=== PATIENT | female | born 1945 | race Caucasian/White ===

== ENCOUNTER → 2020-02-05 13:59 | Outpatient (BNVA) | payer MEDICARE, OTHER, SELFPAY | PROVIDERS: Family Provider Family Medicine; PCP Family Medicine; Visit Provider Nurse Practitioner | DX: Z20.828 Contact with and (suspected) exposure to other viral communicable diseases (principal) | CPT/HCPCS: 87635 ==

== ENCOUNTER → 2020-02-12 10:54 | Outpatient (BNVA) | payer MEDICARE, OTHER, SELFPAY | PROVIDERS: Family Provider Family Medicine; PCP Family Medicine; Visit Provider Nurse Practitioner Family | DX: Z20.828 Contact with and (suspected) exposure to other viral communicable diseases (principal); J06.9 Acute upper respiratory infection, unspecified | CPT/HCPCS: 87635 ==

== ENCOUNTER → 2020-12-31 08:43 | Outpatient (BNVA) | payer MEDICARE, OTHER, SELFPAY | PROVIDERS: Family Provider Family Medicine; PCP Family Medicine; Visit Provider Internal Medicine | DX: R76.8 Other specified abnormal immunological findings in serum (principal); R79.82 Elevated C-reactive protein (CRP); R53.1 Weakness; M79.10 Myalgia, unspecified site; Z11.59 Encounter for screening for other viral diseases; Z79.899 Other long term (current) drug therapy; M70.60 Trochanteric bursitis, unspecified hip; Y93.9 Activity, unspecified | CPT/HCPCS: 36415; 72100; 73120; 80053; 81003; 82550; 83516; 83735; 84100; 84155; 84165; 84443; 85025; 85651; 86140; 86160; 86162; 86235; 86255; 86376; 86704; 86803; 87340; 99204; 99214 ==

== ENCOUNTER 2020-12-31 10:36 | Outpatient (CLI) | payer MEDICARE, OTHER, SELFPAY ==
--- NOTE | 2020-12-31 10:46 | XR_ITS ---
WS: [id number] Exam: XR lumbar spine 2-3V* [id number] Date/Time of Exam: 12/31/2020 10:55 AM Reason For Exam: R76.8 - Other specified abnormal immunological findings i... No fracture or dislocation. Disc spaces are preserved. Posterior elements are intact. Osteopenia. XR/XR lumbar spine 2-3V* [id number] IMPRESSION: 1. No fracture or malalignment. 2. Mild spondylosis. Osteopenia.
--- NOTE | 2020-12-31 10:46 | XR_ITS ---
WS: [id number] Exam: XR hand RT 2V [id number] Date/Time of Exam: 12/31/2020 10:55 AM Reason For Exam: M79.10 - Myalgia, unspecified site No fracture or dislocation noted. Degenerative narrowing of the DIP joints. No soft tissue foreign silvina dies are seen. XR/XR hand RT 2V 14227 IMPRESSION: 1. Degenerative narrowing of the DIP joints. 2. No fracture or other significant finding.
[2020-12-31 11:32] LABS: Add Urine Microscopic? NO; Charge for UA Resulting for Rev
[2020-12-31 11:38] LABS: Basophils # 0.1 10^3/uL (0.0-0.1); Basophils % 0.7 %; Eosinophils % 0.2 %; Hematocrit 36.5 % (37.0-47.0); Hemoglobin 11.9 g/dL (11.5-15.3); Lymphocytes # 1.1 10^3/uL (0.8-4.8); Lymphocytes % 11.4 %; Mean Corpuscular HGB Conc 32.6 g/dL (30.0-36.0); Mean Corpuscular Hemoglobin 31.5 pg (28.0-34.0); Mean Corpuscular Volume 96.6 fl (81-99); Monocytes # 0.6 10^3/uL (0.2-0.9); Neutrophils # 7.95 10^3/uL (1.8-7.7); Neutrophils % 81.2 %; Nucleated Red Blood Cells % 0 %; Platelet Count 579 10^3/cmm (130-400); Red Blood Count 3.78 10^6/uL (4.1-5.3); Red Cell Distribution Width 12.8 % (12.1-15.1); White Blood Count 9.8 10^3/uL (4.0-10.0)
[2020-12-31 12:00] LABS: Bilirubin Urine Neg (Negative); Blood Urine Neg (Negative); Glucose Urine UA Norm (Normal); Ketones Urine Negative (Negative); Leukocyte Esterase Urine Negative (Negative); Nitrate Urine Negative (Negative); Protein Urine Neg (Negative); Urine Appearance Clear (CLEAR); Urine Color Straw (Yellow); Urobilinogen Urine Norm (Negative); pH Urine 7 (5-7)
[2020-12-31 12:34] LABS: Alanine Aminotransferase 14 U/L (0-33); Alkaline Phosphatase 69 IU/L (35-105); Anion Gap 20.6 (5-19); Aspartate Amino Transferase 18 U/L (0-32); Blood Urea Nitrogen 7 mg/dL (8-23); C Reactive Protein 37.5 mg/L (0.0-4.9); Carbon Dioxide 21 mmol/L (22-29); Chloride 93 mmol/L (98-107); Complement C3 150 mg/dL (90-180); Creatine Phosphokinase 43 U/L (26-192); Globulin 3.6 g/dL (1.3-4.6); Glucose 105 mg/dL (65-115); Magnesium 1.9 mg/dL (1.7-2.3); Osmolality Calculated 268 mOsm/kg (285-295); Phosphorus 3.2 mg/dL (2.5-4.5); Potassium 4.6 mmol/L (3.5-5.1); Sodium 130 mmol/L (136-145); Thyroid Stimulating Hormone 10.21 uIU/mL (0.27-4.20); Total Bilirubin 0.4 mg/dL (0.15-1.2); Total Protein 7.6 g/dL (6.6-8.7)
[2020-12-31 12:37] LABS: Hepatitis B Core AB, Total Non-Reactive (Nonreactive); Hepatitis B Surface Antigen Non-Reactive (Nonreactive); Hepatitis C Virus Antibody Non-Reactive (Nonreactive)
[2021-01-01 11:03] LABS: PROTEIN, TOTAL 6.8 g/dL (6.1-8.1)
[2021-01-01 12:18] LABS: COMPLEMENT COMPONENT C3C 163 mg/dL (83-193); COMPLEMENT COMPONENT C4C 35 mg/dL (15-57)
[2021-01-01 14:00] LABS: Erythrocyte Sedimentation Rate 36 mm/hr (0-15)
[2021-01-01 15:08] LABS: ALBUMIN 3.5 g/dL (3.8-4.8); ALPHA 1 GLOBULIN 0.4 g/dL (0.2-0.3); ALPHA 2 GLOBULIN 1.1 g/dL (0.5-0.9); BETA 1 GLOBULIN 0.5 g/dL (0.4-0.6); BETA 2 GLOBULIN 0.4 g/dL (0.2-0.5); COMPLEMENT, TOTAL (CH50) >60 U/mL (31-60); GAMMA GLOBULIN 0.9 g/dL (0.8-1.7)
[2021-01-04 12:41] LABS: CENTROMERE B ANTIBODY <1.0 NEG AI (<1.0 NEG); JO-1 ANTIBODY <1.0 NEG AI (<1.0 NEG); RNP ANTIBODY <1.0 NEG AI (<1.0 NEG); SCL-70 ANTIBODY <1.0 NEG AI (<1.0 NEG); SJOGREN'S ANTIBODY (SS-A) <1.0 NEG AI (<1.0 NEG); SM ANTIBODY <1.0 NEG AI (<1.0 NEG); SS-B <1.0 NEG AI (<1.0 NEG)
[2021-01-04 13:52] LABS: THYROID PEROXIDASE ANTIBODIES 307 IU/mL (<9)
[2021-01-04 14:53] LABS: ANA SCREEN, IFA NEGATIVE (NEGATIVE)
[2021-01-06 15:57] LABS: ANCA Screen NEGATIVE (NEGATIVE)
== END 2020-12-31 10:37 | disposition home or self-care (01) ==
PROVIDERS: PCP Family Medicine; Visit Provider Internal Medicine
DX: M79.10 Myalgia, unspecified site (principal); R53.1 Weakness; R76.8 Other specified abnormal immunological findings in serum; R79.82 Elevated C-reactive protein (CRP); Z79.899 Other long term (current) drug therapy; Z11.59 Encounter for screening for other viral diseases
CPT/HCPCS: 36415; 72100; 73120; 80053; 81003; 82550; 83516; 83735; 84100; 84155; 84165; 84443; 85025; 85651; 86140; 86160; 86162; 86235; 86255; 86376; 86704; 86803; 87340

== ENCOUNTER → 2021-01-15 08:10 | Outpatient (BNVA) | payer MEDICARE, OTHER, SELFPAY | PROVIDERS: PCP Family Medicine; Visit Provider Internal Medicine | DX: R76.8 Other specified abnormal immunological findings in serum (principal); R79.82 Elevated C-reactive protein (CRP); R79.89 Other specified abnormal findings of blood chemistry; D75.839 Thrombocytosis, unspecified | CPT/HCPCS: 99214 ==

== ENCOUNTER → 2021-06-17 07:46 | Outpatient (BNVA) | payer MEDICARE, OTHER, SELFPAY | PROVIDERS: PCP Family Medicine; Visit Provider Family Medicine | DX: N19 Unspecified kidney failure (principal); R79.89 Other specified abnormal findings of blood chemistry; R53.1 Weakness; M25.50 Pain in unspecified joint; M79.10 Myalgia, unspecified site | CPT/HCPCS: 80053; 84439; 84443; 84481; 85025; 86140 ==

== ENCOUNTER → 2021-09-14 07:56 | Outpatient (BNVA) | payer MEDICARE, OTHER, SELFPAY | PROVIDERS: PCP Family Medicine; Visit Provider Family Medicine | DX: R53.1 Weakness (principal); R79.89 Other specified abnormal findings of blood chemistry; R79.82 Elevated C-reactive protein (CRP) | CPT/HCPCS: 80053; 84439; 84443; 85025; 86141 ==

== ENCOUNTER → 2021-12-21 08:12 | Outpatient (BNVA) | payer MEDICARE, OTHER, SELFPAY | PROVIDERS: PCP Family Medicine; Visit Provider Family Medicine | DX: Z00.00 Encounter for general adult medical examination without abnormal findings (principal); M79.10 Myalgia, unspecified site; R53.1 Weakness | CPT/HCPCS: 80053; 80061; 85025 ==

== ENCOUNTER → 2022-03-28 08:05 | Outpatient (BNVA) | payer MEDICARE, OTHER, SELFPAY | PROVIDERS: PCP Family Medicine; Visit Provider Family Medicine | DX: R79.89 Other specified abnormal findings of blood chemistry (principal); Z13.9 Encounter for screening, unspecified; R79.82 Elevated C-reactive protein (CRP); R76.8 Other specified abnormal immunological findings in serum | CPT/HCPCS: 80053; 80061; 85025 ==

== ENCOUNTER → 2022-09-27 07:59 | Outpatient (BNVA) | payer MEDICARE, OTHER, SELFPAY | PROVIDERS: PCP Family Medicine; Visit Provider Family Medicine | DX: R79.82 Elevated C-reactive protein (CRP) (principal); R76.8 Other specified abnormal immunological findings in serum; R79.89 Other specified abnormal findings of blood chemistry; D75.839 Thrombocytosis, unspecified; R53.1 Weakness; Z13.6 Encounter for screening for cardiovascular disorders; E03.9 Hypothyroidism, unspecified; M19.90 Unspecified osteoarthritis, unspecified site | CPT/HCPCS: 80053; 80061; 83036; 84443; 85025; 85651 ==

== ENCOUNTER → 2023-03-14 08:17 | Outpatient (BNVA) | payer MEDICARE, OTHER, SELFPAY | PROVIDERS: PCP Family Medicine; Visit Provider Family Medicine | DX: R79.82 Elevated C-reactive protein (CRP) (principal); R76.8 Other specified abnormal immunological findings in serum; R79.89 Other specified abnormal findings of blood chemistry; I10 Essential (primary) hypertension; R53.83 Other fatigue | CPT/HCPCS: 80053; 80061; 84443; 85025 ==

== ENCOUNTER → 2023-09-26 07:55 | Outpatient (BNVA) | payer MEDICARE, OTHER, SELFPAY | PROVIDERS: PCP Family Medicine; Visit Provider Family Medicine | DX: R79.89 Other specified abnormal findings of blood chemistry (principal); R79.82 Elevated C-reactive protein (CRP); R76.8 Other specified abnormal immunological findings in serum; D75.839 Thrombocytosis, unspecified; M79.10 Myalgia, unspecified site | CPT/HCPCS: 80053; 80061; 84443; 85007; 85027 ==

== ENCOUNTER → 2024-03-11 07:59 | Outpatient (BNVA) | payer MEDICARE, OTHER, SELFPAY | PROVIDERS: PCP Family Medicine; Visit Provider Family Medicine | DX: E03.9 Hypothyroidism, unspecified (principal); R79.89 Other specified abnormal findings of blood chemistry; D75.839 Thrombocytosis, unspecified; R76.8 Other specified abnormal immunological findings in serum; R79.82 Elevated C-reactive protein (CRP); R53.1 Weakness; M19.90 Unspecified osteoarthritis, unspecified site; Z13.6 Encounter for screening for cardiovascular disorders | CPT/HCPCS: 80053; 80061; 82607; 82652; 83036; 84443; 85025; 85651; 86140 ==

== ENCOUNTER → 2024-09-03 08:01 | Outpatient (BNVA) | payer MEDICARE, OTHER, SELFPAY | PROVIDERS: PCP Family Medicine; Visit Provider Family Medicine | DX: R53.1 Weakness (principal); M79.10 Myalgia, unspecified site; R79.89 Other specified abnormal findings of blood chemistry; M19.90 Unspecified osteoarthritis, unspecified site; K21.9 Gastro-esophageal reflux disease without esophagitis; D75.839 Thrombocytosis, unspecified; R76.8 Other specified abnormal immunological findings in serum; R79.82 Elevated C-reactive protein (CRP); E03.9 Hypothyroidism, unspecified | CPT/HCPCS: 80053; 80061; 82306; 82607; 83036; 84443; 85025; 85651; 86140 ==